=== PATIENT | female | born 1945 | race Caucasian/White ===

== ENCOUNTER → 2017-02-02 14:21 | Outpatient (CLI) | payer MEDICARE | END | disposition home or self-care (01) | LOC: D.CT 14:21 | DX: R91.8 Other nonspecific abnormal finding of lung field (principal) ==

== ENCOUNTER → 2017-06-26 21:33 | Outpatient (CLI) | payer OTHER | END | disposition home or self-care (01) | LOC: D.MAMMO 10:15 | DX: Z12.31 Encounter for screening mammogram for malignant neoplasm of breast (principal) ==

== ENCOUNTER 2017-09-10 08:31 | Outpatient (CLI) | payer OTHER | END 2017-09-10 08:32 | disposition home or self-care (01) | LOC: D.MAMMO 08:31 | DX: Z12.31 Encounter for screening mammogram for malignant neoplasm of breast (principal) ==

== ENCOUNTER → 2018-08-13 11:35 | Outpatient (CLI) | payer OTHER ==
[~2018-08-13 11:35] MED LIST: ATIVAN0.5 MG PO; CELEXA40 MG PO; HYDROCODON-ACE1 EA10 PO; LEVOTHYROXINE50 MCG PO; LOVASTATIN40 MG PO; NEURONTIN 300300 MG; OMEPRAZOLE20 M1 PO; ROPINIROLE HCL2 MG
[2018-09-30 05:55] VITALS: BMI 20.4
== END | disposition home or self-care (01) ==
LOC: D.MRI 11:00
PROVIDERS: ATTEND Orthopaedic Surgery
DX: S83.222A Peripheral tear of medial meniscus, current injury, left knee, initial encounter (principal)

== ENCOUNTER 2018-09-30 05:15 | Day surgery (SDC) | payer OTHER ==
[2018-09-29 15:20] LABS: HEMATOCRIT 37.8 % (36.0-48.0); MCH 31.9 pg (26.0-34.0); MCHC 34.4 g/dL (31.0-37.0); MCV 92.9 fL (80.0-100.0); MEAN PLATELET VOLUME 10.5 fL (7.4-10.4); RBC 4.07 10x6/uL (4.00-5.40); WBC 5.2 10x3/uL (4.8-10.8)
[~2018-09-30] VITALS: Ht 154.9 cm; Wt 49.0 kg
[~2018-09-30 05:15] MED LIST changes: -HYDROCODON-ACE1 EA10 PO
[2018-09-30 05:55] VITALS: BP 145/65; Ht 154.9 cm; Wt 49.0 kg
[2018-09-30] MEDS ORDERED: HYDROCODON-ACE1 EA10 PO (08:03)
--- NOTE | 2018-09-30 10:15 | NUR ---
ALL DC INSTRUCTIONS GIVEN. TAUGHT HOW TO USE WALKER. ALL DC CRITERIA MET. DRESSED AT BEDSIDE. TAKEN OUT VIA W/C TO CAR WITH SISTER. ADVISED TO CALL OR COME BACK IF ANY PROBLEMS.
--- NOTE | 2018-09-30 12:35 | OP ---
PATIENT NAME: KEITH ARREDONDO MEDICAL RECORD: [id number] :45 LOCATION:[facility] ADMISSION DATE: SURGEON: JOSH NGUYEN MD DATE OF OPERATION: 09/30/2018 PREOPERATIVE DIAGNOSIS: Lateral meniscus tear of the left knee. POSTOPERATIVE DIAGNOSIS: Lateral meniscus tear of the left knee. PROCEDURES: 1. Arthroscopic partial lateral meniscectomy. 2. Decompression of Almeida's cyst. SURGEON: Josh Nguyen MD ANESTHESIA: General. INTRAOPERATIVE COMPLICATIONS: None. SUMMARY OF PATHOLOGIC FINDINGS: A complex tear of the posterior horn of the lateral meniscus that required debridement and upon expressing the Almeida's cyst, the synovial fluid was easily seen in the arthroscopic fluid. This was decompressed in its entirety. The remainder of the knee was excellent without evidence of chondromalacia in any of the 3 compartments. Having completed this, the knee was insufflated with 30 cc of 0.25% Marcaine with epinephrine and 80 mg of Depo-Medrol. Arthroscopy portals were closed in routine interrupted fashion using 4-0 Prolene. Sterile dressings were applied. The patient was awakened, taken to the recovery room in stable condition. All final needle and sponge counts were correct. TRANSINT:[id number] Voice Confirmation ID: [id number] DOCUMENT ID: [id number] PATRICK CASTELAN, JOSH SWEENEY at 1235 CC: [id number] DICTATION DATE: 09/30/18 1054 RAILROAD ENGINEER: 09/30/18 1122 [facility] 09/30/18 [id number] [place] [address]
== END 2018-09-30 10:17 | disposition home or self-care (01) ==
LOC: D.OPS 05:15 → D.PAN 07:30 → D.OPS 08:15 → D.PAN 08:15 → D.OPS 10:17
PROVIDERS: Anesthesiology; ATTEND Orthopaedic Surgery
DX: S83.272A Complex tear of lateral meniscus, current injury, left knee, initial encounter (principal); M71.22 Synovial cyst of popliteal space [Baker], left knee; Z01.812 Encounter for preprocedural laboratory examination

== ENCOUNTER → 2018-10-29 15:00 | Outpatient (CLI) | payer OTHER ==
[2018-09-30 05:55] VITALS: BMI 20.4
[~2018-10-29 15:00] MED LIST changes: +HYDROCODON-ACE1 EA10 PO
== END | disposition home or self-care (01) ==
LOC: D.US 15:00
PROVIDERS: ATTEND Family Medicine Adult Medicine
DX: M79.662 Pain in left lower leg (principal)

== ENCOUNTER → 2018-11-04 22:51 | Outpatient (CLI) | payer OTHER ==
[2018-09-30 05:55] VITALS: BMI 20.4
[2018-11-05 00:34] LABS: ERYTHROCYTE SEDIMENTATION RATE 14 mm/hr (0-30)
== END | disposition home or self-care (01) ==
LOC: D.LABREF 22:51
PROVIDERS: ATTEND Clinical Nurse Specialist Family Health
DX: Z00.00 Encounter for general adult medical examination without abnormal findings (principal)

== ENCOUNTER 2020-07-27 14:45 | Outpatient (CLI) | payer OTHER ==
[2020-03-08 16:41] VITALS: BMI 18.7
[~2020-07-27 14:45] MED LIST changes: +CLARITIN 10 MG10 MG PO; +EVISTA60 MG PO; +FLUTICASONE PRO16 GM NASAL; +HYDROXYCHLOROQ200 MG PO; +PREDNISONE20 MG PO; +VIBRAMYCIN 100100 MG PO
== END 2020-07-27 15:15 | disposition home or self-care (01) ==
LOC: D.MAMMO 14:45
PROVIDERS: ATTEND Family Medicine Adult Medicine
DX: Z12.31 Encounter for screening mammogram for malignant neoplasm of breast (principal)